=== PATIENT | female | born 1970 | race Caucasian/White ===

== ENCOUNTER 2021-04-02 18:30 | Inpatient (IN) | payer SELFPAY ==
[~2021-04-02] VITALS: Ht 154.9 cm; Wt 62.1 kg
[2021-04-02 18:39] VITALS: BP 194/122
[2021-04-02 19:30] LABS: BASO % 0.3 % (0.0-1.0); EOS # 0.1 10*3/uL (0.0-0.4); EOS % 0.7 % (1.0-4.0); HEMATOCRIT 46.4 % (37.0-47.0); LYMPH % 26.6 % (27.0-41.0); MEAN CELL VOLUME 87.1 fl (81.0-99.0); MEAN CORPUSCULAR HGB 30.2 pg (27.0-31.0); MEAN CORPUSCULAR HGB CONC 34.7 g/dl (33.0-37.0); MONO % 8.8 % (3.0-9.0); NEUT # 7.2 10*3/uL (2.3-7.9); NEUT % 63.3 % (47.0-73.0); PLATELET COUNT AUTOMATED 384 10*3/uL (130-400); RED BLOOD COUNT 5.33 10*6/uL (4.10-5.10); RED CELL DISTRI WIDTH 12.4 % (0-14.5); WHITE BLOOD COUNT 11.5 10*3/uL (4.8-10.8)
[2021-04-02 19:58] LABS: ALBUMIN 3.9 gm/dl (3.1-4.5); ALKALINE PHOSPHATASE 102 U/L (45-117); BUN 11 mg/dl (7-24); CHLORIDE 101 mmol/L (98-107); CREATININE 0.83 mg/dL (0.55-1.02); LIPASE 240 U/L (73-393); POTASSIUM 2.6 mmol/L (3.5-5.1); SGOT/AST 13 IU/L (3-35); SGPT/ALT 16 U/L (12-78); SODIUM 139 mmol/L (136-145); TOTAL PROTEIN 7.3 gm/dL (6.4-8.2)
[2021-04-02 20:05] LABS: BILIRUBIN 1+ (Negative); BLOOD 1+ (Negative); CLARITY Cloudy (Clear); COLOR Dark Yellow (Yellow); GLUCOSE Trace (Negative); KETONE Trace (Negative); LEUKO ESTERASE 1+ (Negative); NITRITE Negative (Negative); SPECIFIC GRAVITY 1.025 (1.001-1.030)
[2021-04-02 20:17] LABS: BACTERIA TRACE; MUCOUS 3+; WBC 16-20 wbc/hpf (0-5)
[2021-04-03] VITALS (21 sets, daily range): BP systolic 113–209; BP diastolic 62–115
[2021-04-03 01:18] LABS: BUN 9 mg/dl (7-24); CHLORIDE 104 mmol/L (98-107); CREATININE 0.62 mg/dL (0.55-1.02); SODIUM 140 mmol/L (136-145)
[2021-04-03 01:34] LABS: POTASSIUM 2.4 mmol/L (3.5-5.1)
[2021-04-03 03:09] LABS: BUN 8 mg/dl (7-24); CHLORIDE 104 mmol/L (98-107); CREATININE 0.66 mg/dL (0.55-1.02); SODIUM 139 mmol/L (136-145)
[2021-04-03 03:14] LABS: POTASSIUM 2.4 mmol/L (3.5-5.1)
[2021-04-03 05:18] LABS: URINE AMPHETAMINES < 1000 (1000ng/ml); URINE BARBITURATES < 200 (200ng/ml); URINE BENZODIAZEPINES < 200 (200ng/ml); URINE CANNABINOIDS (THC) < 50 (50ng/ml); URINE COCAINE < 300 (300ng/ml); URINE METHADONE < 300 (300ng/ml); URINE OPIATES < 300 (300ng/ml)
[2021-04-03 05:21] LABS: URINE PHENCYCLIDINE < 25 (25ng/ml)
[2021-04-03 05:48] LABS: BUN 9 mg/dl (7-24); CHLORIDE 105 mmol/L (98-107); CREATININE 0.63 mg/dL (0.55-1.02); POTASSIUM 2.7 mmol/L (3.5-5.1); SODIUM 138 mmol/L (136-145)
[2021-04-03 05:53] LABS: CHOLESTEROL 187 mg/dL (<200); FREE T4 1.36 ng/dl (0.76-1.46); LDL CHOLESTEROL 118 mg/dL (9-159); TRIGLYCERIDES 125 mg/dl (<150)
[2021-04-03 05:59] LABS: THYROID STIM HORMONE (HS) 0.754 uIU/ml (0.358-4.75)
[2021-04-03 06:09] LABS: BASO % 0.4 % (0.0-1.0); EOS # 0.1 10*3/uL (0.0-0.4); HEMATOCRIT 46.9 % (37.0-47.0); LYMPH # 3.2 10*3/uL (1.3-4.4); LYMPH % 28.8 % (27.0-41.0); MEAN CELL VOLUME 88.5 fl (81.0-99.0); MEAN CORPUSCULAR HGB 30.2 pg (27.0-31.0); MEAN CORPUSCULAR HGB CONC 34.1 g/dl (33.0-37.0); MEAN PLATELET VOLUME 11.5 fl (9.6-12.3); MONO # 0.9 10*3/uL (0.1-1.0); NEUT # 6.8 10*3/uL (2.3-7.9); NEUT % 61.4 % (47.0-73.0); PLATELET COUNT AUTOMATED 343 10*3/uL (130-400); RED CELL DISTRI WIDTH 12.4 % (0-14.5); WHITE BLOOD COUNT 11.1 10*3/uL (4.8-10.8)
[2021-04-03 09:04] LABS: VITAMIN D, 25-HYDROXY 11.1 ng/mL (30-100)
[2021-04-03 12:25] LABS: BUN 8 mg/dl (7-24); CHLORIDE 107 mmol/L (98-107); CREATININE 0.67 mg/dL (0.55-1.02); POTASSIUM 3.5 mmol/L (3.5-5.1); SODIUM 139 mmol/L (136-145)
[2021-04-04] VITALS: BP 154/88; BP 163/94
[2021-04-04 05:57] LABS: BUN 14 mg/dl (7-24); CHLORIDE 109 mmol/L (98-107); CREATININE 0.77 mg/dL (0.55-1.02); POTASSIUM 3.5 mmol/L (3.5-5.1); SODIUM 141 mmol/L (136-145)
[2021-04-04 08:00] VITALS: BP 168/94
[2021-04-04 12:00] VITALS: BP 163/86
[2021-04-04 16:00] VITALS: BP 142/74
[2021-04-04 20:00] VITALS: BP 130/71
[2021-04-04 23:14] VITALS: BP 204/104
[2021-04-05] VITALS (9 sets, daily range): BP systolic 116–204; BP diastolic 63–104
[2021-04-05 06:17] LABS: BUN 16 mg/dl (7-24); CHLORIDE 107 mmol/L (98-107); CREATININE 0.72 mg/dL (0.55-1.02); POTASSIUM 3.8 mmol/L (3.5-5.1); SODIUM 139 mmol/L (136-145)
[2021-04-06] VITALS: BP 139/78
[2021-04-06 06:00] VITALS: BP 152/90
[2021-04-06 08:07] VITALS: BP 160/86
[2021-04-06] MEDS ORDERED: 'CLONIDINE0.1 MG PO ×3 (09:27→13:53)
[2021-04-06] MEDS ORDERED: LISINOPRIL20 MG PO ×3 (09:27→13:53)
[2021-04-06 12:00] VITALS: BP 122/77
[2021-04-06] MEDS ORDERED: METHOCARBAMOL750 M1 PO ×3 (13:19→13:53)
[2021-04-06] MEDS ORDERED: ROPINIROLE HYD0.5 MG PO ×3 (13:19→13:53)
[2021-04-06] MEDS ORDERED: ATARAX,VISTARIL50 MG PO ×3 (13:19→13:53)
== END 2021-04-06 14:30 | disposition home or self-care (01) | DRG 897 ==
LOC: ED 18:30 → EDHOLD 04-03 02:02 → 4E 04-03 02:02
PROVIDERS: Emergency Medicine; Hospitalist; Internal Medicine; Student in an Organized Health Care Education/Training Program; ADMIT Internal Medicine; ATTEND Internal Medicine
DX: F11.23 Opioid dependence with withdrawal (principal); I16.1 Hypertensive emergency; F17.210 Nicotine dependence, cigarettes, uncomplicated; E83.41 Hypermagnesemia; E87.6 Hypokalemia; R73.9 Hyperglycemia, unspecified; M79.10 Myalgia, unspecified site; R19.7 Diarrhea, unspecified; F14.10 Cocaine abuse, uncomplicated; I10 Essential (primary) hypertension; Z71.6 Tobacco abuse counseling; Z82.49 Family history of ischemic heart disease and other diseases of the circulatory system; Z83.3 Family history of diabetes mellitus